=== PATIENT | female | born 2000 | race African-American/Black ===

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

== ENCOUNTER 2021-01-02 02:43 | Emergency (ER) | payer MEDICAID ==
[~2021-01-02] VITALS: Ht 170.2 cm; Wt 146.2 kg
[2021-01-02 02:49] VITALS: BP 126/72
[2021-01-02] MEDS ORDERED: ACETAMINOPHEN 325MG TABLET PO ONE (04:30)
[2021-01-02] MEDS ORDERED: ACET-2708 MT (06:27)
[2021-01-02] MEDS ORDERED: NAP5EC MT (06:27)
== END 2021-01-02 06:37 | disposition home or self-care (01) ==
LOC: ER 02:43
DX: R51.9 Headache, unspecified (principal); F41.9 Anxiety disorder, unspecified; F32.9 Major depressive disorder, single episode, unspecified
CPT/HCPCS: 81025; 82962; 99282

== ENCOUNTER 2021-08-15 19:21 | Emergency (ER) | payer MEDICAID ==
[~2021-08-15] VITALS: Ht 165.1 cm; Wt 110.0 kg
[~2021-08-15 19:21] MED LIST: ACET-2708 MT; NAP5EC MT
[2021-08-15 19:36] VITALS: BP 160/76
== END 2021-08-15 21:49 | disposition home or self-care (01) ==
LOC: ER 19:21
DX: M79.652 Pain in left thigh (principal)
CPT/HCPCS: 73552; 93971; 99284